=== PATIENT | female | born 1945 | race Caucasian/White ===

== ENCOUNTER 2021-07-18 19:21 | Emergency (ER) | payer MEDICARE, OTHER ==
[~2021-07-18] VITALS: Ht 167.6 cm; Wt 81.6 kg
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
[2021-07-18 20:11] LABS: HEMATOCRIT 38.2 % (31.2-41.9); MEAN CORPUSCULAR HEMOGLOBIN 30.6 uug (24.7-32.8); MEAN CORPUSCULAR VOLUME 89.2 fL (75.5-95.3); PLATELET COUNT (AUTO) 254 K/uL (179-408)
[2021-07-18 20:22] LABS: CARBON DIOXIDE 25 mmol/L (21-32); CHLORIDE 106 mmol/L (98-107); CREATININE 0.6 mg/dL (0.6-1.3); GLUCOSE 113 mg/dL (74-106); POTASSIUM 3.6 mmol/L (3.5-5.1); UREA NITROGEN, BLOOD 12 mg/dL (7-18)
--- NOTE | 2021-07-18 20:26 | NUR ---
Pt taken to CT.
[2021-07-18 20:27] LABS: ETHANOL < 3 MG/DL (0-0)
[2021-07-18 20:30] LABS: ALANINE AMINOTRANSFERASE 45 U/L (14-59); ALKALINE PHOSPHATASE 72 U/L (50-136); ASPARTATE AMINOTRANSFERASE 43 U/L (15-37); BILIRUBIN,DIRECT 0.1 mg/dL (0.0-0.2); BILIRUBIN,TOTAL 0.5 mg/dL (0.2-1.0); TOTAL PROTEIN, SERUM 7.9 g/dL (6.4-8.2)
[2021-07-18 20:42] LABS: THYROID STIMULATING HORMONE 6.572 mIU/mL (0.358-3.740)
--- NOTE | 2021-07-18 21:00 | NUR ---
Pt returned from CT
--- NOTE | 2021-07-18 21:28 | NUR ---
Patient discharged to home in stable condition. Written and verbal after care instructions given. Patient verbalizes understanding of instructions. Stressed follow up or return to ER for worsening s/s. Pt walks with steady gait. No signs of distress.VSS. All belongings taken. Pt. driven home by her son.
[2021-07-18 22:18] VITALS: BP 136/87
== END 2021-07-18 21:30 | disposition home or self-care (01) ==
LOC: ER 19:26
DX: S13.9XXA Sprain of joints and ligaments of unspecified parts of neck, initial encounter (principal); S33.5XXA Sprain of ligaments of lumbar spine, initial encounter; V43.52XA Car driver injured in collision with other type car in traffic accident, initial encounter; Y92.411 Interstate highway as the place of occurrence of the external cause; Z88.6 Allergy status to analgesic agent; R41.82 Altered mental status, unspecified; Z82.49 Family history of ischemic heart disease and other diseases of the circulatory system; Z98.1 Arthrodesis status; R94.31 Abnormal electrocardiogram [ECG] [EKG]; R94.6 Abnormal results of thyroid function studies
CPT/HCPCS: 36415; 70030-TC; 70450; 71045; 72125; 84443; 85025; 85730; 93005; A4663; G0480